=== PATIENT | female | born 1985 | race Caucasian/White ===

== ENCOUNTER → 2017-08-08 09:16 | Outpatient (CLI) | payer OTHER, SELFPAY ==
--- NOTE | 2017-08-08 10:27 | RAD_ITS ---
STUDY: X-RAY - CERVICAL SPINE REASON FOR EXAM: Female, 32 years old. Headaches and neck popping TECHNIQUE: 5 view(s) of the cervical spine were obtained. COMPARISON: None FINDINGS: Normal anterior atlantoaxial articulation. Normal odontoid process. Normal cervical lordosis. Normal vertebral bodies and endplates. Normal disc space heights. Normal visualized intervertebral neuroforamina. The soft tissue structures are unremarkable. RAD/Cerv Spine 4 or 5 Views IMPRESSION: Normal x-ray examination of the visualized cervical spine. Electronically Signed: Jin Moss MD at 8:20 EDT Tel , Service support ,
[2017-08-08 10:57] LABS: Free T3 2.5 pg/mL (2.18-3.98); T4 Free Direct 1.14 ng/dL (0.76-1.46)
== END ==
PROVIDERS: Family Provider Family Medicine; PCP Family Medicine; Visit Provider Family Medicine
DX: E03.9 Hypothyroidism, unspecified (principal); G43.909 Migraine, unspecified, not intractable, without status migrainosus
CPT/HCPCS: 36415; 72050; 84439; 84443; 84481

== ENCOUNTER → 2018-02-06 10:09 | Outpatient (CLI) | payer OTHER, SELFPAY ==
[2018-02-06 10:49] LABS: Thyroid Stim Hormone (TSH) 7.43 uIU/mL (0.358-3.74)
== END ==
PROVIDERS: Family Provider Family Medicine; PCP Family Medicine; Visit Provider Family Medicine
DX: E03.9 Hypothyroidism, unspecified (principal)
CPT/HCPCS: 84439; 84443

== ENCOUNTER → 2019-02-05 08:49 | Outpatient (CLI) | payer OTHER, BC, SELFPAY ==
[2018-08-25 09:06] VITALS: BMI 21.3
[2019-02-05 10:38] LABS: T4 Free Direct 1.13 ng/dL (0.76-1.46); Thyroid Stim Hormone (TSH) 0.55 uIU/mL (0.358-3.74)
== END ==
PROVIDERS: Family Provider Family Medicine; PCP Family Medicine; Referring Provider Family Medicine; Visit Provider Family Medicine
DX: E03.9 Hypothyroidism, unspecified (principal)
CPT/HCPCS: 36415; 84439; 84443

== ENCOUNTER → 2019-06-21 13:42 | Outpatient (CLI) | payer BC, SELFPAY ==
[2019-05-18 09:41] VITALS: BMI 21.3
--- NOTE | 2019-06-21 14:10 | RAD_ITS ---
STUDY: X-RAY - PARANASAL SINUSES REASON FOR EXAM: Female, 34 years old. allergic rhinitis TECHNIQUE: 3 view(s) of the paranasal sinuses were obtained. COMPARISON: None. FINDINGS: Normal visualized frontal, maxillary, ethmoidal and sphenoid sinuses. Normal visualized facial bones. The soft tissue structures are unremarkable. RAD/Sinuses min 3 Views IMPRESSION: Normal x-rays of the paranasal sinuses. Electronically Signed: Joby Freitas MD ([place]) at 14:34 EST , Service support ,
== END ==
PROVIDERS: PCP Family Medicine; Visit Provider Family Medicine
DX: J30.9 Allergic rhinitis, unspecified (principal)
CPT/HCPCS: 70220

== ENCOUNTER → 2019-07-23 15:22 | Outpatient (CLI) | payer BC, SELFPAY ==
[2019-07-23 13:52] VITALS: BMI 22.2
[2019-07-28 12:26] LABS: HPV APTIMA, High Risk Negative (Negative)
== END ==
PROVIDERS: PCP Family Medicine; Referring Provider Nurse Practitioner Women's Health; Visit Provider Nurse Practitioner Women's Health
DX: Z12.4 Encounter for screening for malignant neoplasm of cervix (principal); N89.8 Other specified noninflammatory disorders of vagina
CPT/HCPCS: 87070; 87205; 87624; 88175; G0145

== ENCOUNTER → 2019-08-06 10:33 | Outpatient (CLI) | payer BC, SELFPAY ==
[2019-07-23 13:52] VITALS: BMI 22.2
[2019-08-06 12:54] LABS: T4 Free Direct 1.27 ng/dL (0.76-1.46); Thyroid Stim Hormone (TSH) 0.62 uIU/mL (0.358-3.74)
== END ==
PROVIDERS: PCP Family Medicine; Referring Provider Family Medicine; Visit Provider Family Medicine
DX: E03.9 Hypothyroidism, unspecified (principal)
CPT/HCPCS: 36415; 84439; 84443

== ENCOUNTER → 2020-02-05 08:51 | Outpatient (CLI) | payer BC, SELFPAY ==
[2019-07-23 13:52] VITALS: BMI 22.2
[2020-02-05 09:30] LABS: T4 Free Direct 0.94 ng/dL (0.76-1.46)
== END ==
PROVIDERS: PCP Family Medicine; Referring Provider Family Medicine; Visit Provider Family Medicine
DX: E03.9 Hypothyroidism, unspecified (principal)
CPT/HCPCS: 36415; 84439; 84443

== ENCOUNTER → 2020-06-15 08:42 | Outpatient (CLI) | payer BC, SELFPAY ==
[2019-07-23 13:52] VITALS: BMI 22.2
[2020-06-15 10:25] LABS: Thyroid Stim Hormone (TSH) 1.83 uIU/mL (0.358-3.74)
== END ==
PROVIDERS: PCP Family Medicine; Referring Provider Family Medicine; Visit Provider Family Medicine
DX: E03.9 Hypothyroidism, unspecified (principal)
CPT/HCPCS: 36415; 84443

== ENCOUNTER → 2020-06-16 08:52 | Outpatient (CLI) | payer BC, SELFPAY ==
[2019-07-23 13:52] VITALS: BMI 22.2
--- NOTE | 2020-06-16 09:03 | RAD_ITS ---
STUDY: X-RAY - ABDOMEN/PELVIS REASON FOR EXAM: Female, 35 years old. Abd pain, hx of constipation TECHNIQUE: Two AP supine views of the abdomen and pelvis. COMPARISON: None. FINDINGS: Normal visualized lung bases. There is an abundance of fecal material throughout the colon. There is no demonstrated free abdominal air. The visualized liver, spleen and kidneys are grossly normal in size and morphology. There is evidence of bilateral tubal ligation clips. Normal visualized osseous structures. RAD/Abd Inc Decub and/or Erect IMPRESSION: Large amount of fecal material is seen in the colon. Electronically Signed: Romain Starkey MD at 15:47 EST , Service support ,
[2020-06-16 10:09] LABS: Absolute Lymphocyte Count 1.57 X10^3/uL (0.83-4.51); Absolute Neutrophil Count 3.2 X10^3/uL (2.0-7.7); Basophil# 0.03 X10^3/uL; Basophil% 0.6 % (0-1); Eosinophil# 0.12 X10^3/uL; Eosinophils% 2.2 % (0-5); Hematocrit 42.2 % (37-47); Hemoglobin 13.5 g/dL (12.0-15.0); Lymphocyte # 1.57 X10^3/ul (4.0); Lymphocyte % 29.3 % (19-41); Mean Corpuscular Hgb 28.7 pg (27.0-32.0); Mean Corpuscular Volume 89.6 fL (81-99); Mean Platelet Vol. 10.1 fl (6.2-12.0); Monocyte# 0.43 X10^3/uL; NRBC Flagged by Analyzer 0 % (0-5); Neutrophil # 3.19 X10^3/uL (2.7-7.7); Neutrophil % 59.7 % (47-70); Platelet Count 298 K/mm3 (150-450); RBC Distribution Width CV 12.3 % (11.6-14.6); RBC Distribution Width SD 40.5 fl (35.1-43.9); Red Blood Count 4.71 M/mm3 (4.2-5.4); White Blood Count 5.4 K/mm3 (4.4-11.0)
[2020-06-16 10:30] LABS: AST(SGOT) 15 U/L (15-37); Alanine Aminotransfer ALT/SGPT 23 U/L (13-56); Albumin, Serum 3.7 g/dL (3.2-5.0); Alkaline Phosphatase 118 U/L (45-117); Anion Gap 6 (5-15); BUN 16 mg/dL (7-18); BUN/Creat Ratio 21.3 RATIO (10-20); Calcium,Total 8.7 mg/dL (8.5-10.1); Chloride 108 mmol/L (98-107); Creatinine, Serum 0.75 mg/dL (0.55-1.02); EST Glomerular Filtration Rate 93 mL/min (>60); Est Glom Filt Rate - Afr Amer 112 mL/min (>60); Globulin 3.7 g/dL (2.2-4.2); Glucose 78 mg/dL (74-106); Iron 37 ug/dL (50-170); Potassium 4.2 mmol/L (3.5-5.1); Protein, Total 7.4 g/dL (6.4-8.2); Sodium Level 139 mmol/L (136-145)
[2020-06-16 13:03] LABS: Vitamin B12 544 pg/mL (211-911); Vitamin D,25 Hydroxy 25.9 ng/mL
== END ==
PROVIDERS: PCP Family Medicine; Referring Provider Family Medicine; Visit Provider Family Medicine
DX: R10.9 Unspecified abdominal pain (principal); R53.83 Other fatigue
CPT/HCPCS: 36415; 74019; 80053; 82306; 82533; 82607; 83540; 85025

== ENCOUNTER → 2022-05-10 | Outpatient (CLI) | payer BC, SELFPAY ==
[2022-05-10 10:18] LABS: Vitamin D,25 Hydroxy 40.9 ng/mL
[2022-05-10 10:20] LABS: T4 Free Direct 1.14 ng/dL (0.76-1.46); Thyroid Stim Hormone (TSH) 0.97 uIU/mL (0.358-3.74)
== END | disposition home or self-care (01) ==
LOC: MFPLAB 08:42
PROVIDERS: PCP Family Medicine; Referring Provider Family Medicine; Visit Provider Family Medicine
DX: E03.9 Hypothyroidism, unspecified (principal); E55.9 Vitamin D deficiency, unspecified
CPT/HCPCS: 36415; 82306; 84439; 84443

== ENCOUNTER → 2023-04-03 | Outpatient (CLI) | payer BC, SELFPAY ==
--- NOTE | 2023-04-03 10:59 | MRI_ITS ---
STUDY: MRI BRAIN WITH AND WITHOUT CONTRAST REASON FOR EXAM: Female, 37 years old. Migraine headaches TECHNIQUE: Standardized multiplanar fat and water weighted pulse sequences were obtained. IV 10ML CLARISCAN was administered for the contrast portion of the examination. COMPARISON: None. FINDINGS: Normal size of the ventricles and extra-axial spaces for the patient''s age. Normal white matter tracts of the supratentorial brain. Normal bilateral basal ganglia. Normal thalami. There is no extra-axial fluid accumulation. Normal flow voids within the major intracranial circulation suggesting patency by spin echo criteria. Normal venous enhancement. There is no enhancing intra-axial or extra-axial abnormality. Normal sella turcica, pituitary gland, infundibular stalk, optic chiasm and hypothalamus. Normal tectal plate and pineal gland. Normal midbrain, keya and medulla. Normal cerebellum. Normal basal cisterns. Normal bilateral temporal bones. Normal bilateral internal auditory canals. No demonstrated orbital abnormality, within the constraints of a routine brain study. Normal visualized paranasal sinuses. Normal calvarium and skull base. Normal visualized soft tissue structures. Normal visualized upper cervical spine. MRI/Brain W/WO Contrast IMPRESSION: Normal unenhanced and enhanced MRI of the brain. Electronically Signed: Sivakumar Junior MD at 16:34 EST ,
== END | disposition home or self-care (01) ==
LOC: MRI 10:55
PROVIDERS: PCP Family Medicine; Visit Provider Psychiatry & Neurology Neurology
DX: G43.009 Migraine without aura, not intractable, without status migrainosus (principal)
CPT/HCPCS: 70553; A9575

== ENCOUNTER 2023-10-06 22:07 | Emergency (ER) | payer BC, SELFPAY ==
[2023-10-06 22:09] VITALS: BP 149/102; PULSE 95; RESP 14; TEMP 36.6; O2SAT 97; BMI 24.4
--- NOTE | 2023-10-06 22:15 | EX.ED.DYSGE1 ---
HPI History of Present Illness Chief Complaint: Allergic Reaction Informant: patient Onset/Context/Timing Onset: Hours (1) Context: Sudden Onset Timing: Waxes and wanes Quality: Swelling Location: Throat Worsened by: Nothing Relieved by: Nothing Narrative Narrative: Patient presents with sensation of throat swelling and tongue numbness that began tonight. Patient states she was eating Cajun seasoned food when her symptoms began. Patient states it felt like her throat was closing. Patient states that this was waxing and waning over the past hour since it began. Patient states she had an episode that lasted a couple seconds where she felt like she could not breathe in or out. Patient denies any chest pain. Patient took 25 mg of Benadryl at home prior to arrival. [facility] Medical History Environmental allergies Headaches, cluster High cholesterol hypothyridism Home Medications levothyroxine 100 mcg tablet 100 mcg PO DAILY@0600 #30 tabs 09/04/14 [Rx Last Taken Unknown] naratriptan 2.5 mg tablet See Rx Instructions PO .COMPLEX #9 tabs 07/10/23 [Rx Last Taken Unknown] doxycycline hyclate 20 mg tablet 20 mg PO BID 10/06/23 [History Last Taken Unknown] prednisone 20 mg tablet 40 mg (2 x 20 mg) PO DAILY #10 TABLETS 10/06/23 [Rx Last Taken Unknown] Allergy/AdvReac Type Severity Reaction Status Date / Time erythromycin base Allergy Unknown Unknown Verified 07/10/23 15:28 [Erythromycin Base] venom-honey bee AdvReac Intermediate Swelling Verified 07/10/23 15:28 [bee venom (honey bee)] doxycycline AdvReac Unknown Unknown Verified 07/10/23 15:28 Family History Other Breast cancer High cholesterol Hypertension Surgical History History of delivery History of hernia repair History of tonsillectomy tubal sterilization Social History Smoking Status: Never smoker alcohol intake: current alcohol intake frequency: holidays/special occasions only substance use type: does not use what type of physical activity do you participate in: walking and aerobics frequency: 1-2 times per week seatbelt use: always do you feel safe at home: Yes ROS ROS ED Constitutional Constitutional ED: Denies chills or fever(s) Eyes Eyes: Denies blurry vision or change in vision ENT ENT ED: Reports sore throat Cardiovascular Cardiovascular: Denies chest pain or palpitations Respiratory/Chest Respiratory/Chest: Denies cough or dyspnea Gastrointestinal Gastrointestinal: Denies nausea or vomiting Genitourinary Genitourinary ED: Denies dysuria or hematuria Musculoskeletal Musculoskeletal: Denies back pain or neck pain Integumentary Denies abscess or rash Neurologic Neurologic: Denies headache(s) or weakness Allergic/Immunologic Allergic/Immunologic ED: Reports tongue swelling EXAM Physical Exam Const Vital Signs: 10/06/23 22:09 10/06/23 23:08 Temperature 98 F 98.1 F Temperature Source Temporal Oral Pulse Rate 95 77 Respiratory Rate 14 18 Blood Pressure 149/102 H 118/78 Blood Pressure Mean 117 91 Pulse Ox 97 97 Oxygen Delivery Method Room Air Positive well nourished and well developed General Appearance ED: well developed and NAD HEENT Reports moist mucous membranes Neck supple and no JVD Resp normal respiratory effort and clear to auscultation bilaterally Cardio regular rate and regular rhythm GI non-tender and non-distended Palpation: soft Extremity normal to inspection Neuro oriented x3, CN's II-XII intact bilaterally and no sensory deficits noted Sensorium / Orientation: alert Motor Exam: strength 5/5 throughout Psych mental status grossly normal MDM MDM MDM Narrative Medical decision making narrative: Patient was advised that this is most likely an allergic reaction. Patient was given a dose of Solu-Medrol. Since the patient took Benadryl prior to arrival, this was withheld. Since her airway is patent and there is no urticaria noted, I do not feel epinephrine is necessary at this time. Treatment and Re-Evaluation :: Patient was given a dose of Solu-Medrol here. Patient was observed in the emergency department. Patient is feeling better on reevaluation. Patient was given a prescription for a short course of prednisone. Patient was instructed to follow-up with her primary care physician in 5 to 7 days. Patient understood and was agreeable with the plan. All questions were answered. Discharge Plan Triage Chief Complaint: Allergic Reaction ED Provider: Rusty Ca Dx/Rx/DC Orders Clinical Impression: Allergic reaction Instructions: ED General Allergic Reactions Prescriptions: New prednisone 20 mg tablet 40 mg PO DAILY Qty: 10 0RF No Action naratriptan 2.5 mg tablet See Rx Instructions PO .COMPLEX Qty: 9 6RF Rx Instructions: take 1 tab at onset of headache; if no relief may repeat 1 tab after at least 4 hrs; max = 2 tabs/24 hrs PO levothyroxine 100 MCG tablet 100 mcg PO DAILY@0600 Qty: 30 1RF doxycycline hyclate 20 mg tablet 20 mg PO BID Primary Care Provider: Fitz Richard Referrals: Fitz Richard MD [Primary Care Provider] - 5-7 Days Disposition Disposition: Home, Self Care
[2023-10-06] MEDS: MethylPREDNISolone 125 MG/2 ML Vial 60 MG IV (22:22)
[2023-10-06 23:08] VITALS: BP 118/78; PULSE 77; RESP 18; TEMP 36.7; O2SAT 97
[2023-10-07] VITALS: BP 116/79; PULSE 81; RESP 18; TEMP 36.3; O2SAT 98
[2023-10-07 00:22] VITALS: BP 125/87; PULSE 77; RESP 16; TEMP 36.7; O2SAT 98
== END 2023-10-07 00:23 | disposition home or self-care (01) ==
PROVIDERS: Emergency Provider Emergency Medicine; PCP Family Medicine; Visit Provider Emergency Medicine
DX: R20.0 Anesthesia of skin (principal); E78.00 Pure hypercholesterolemia, unspecified; E03.9 Hypothyroidism, unspecified; Z79.899 Other long term (current) drug therapy; Z30.2 Encounter for sterilization; T78.1XXA Other adverse food reactions, not elsewhere classified, initial encounter; R22.1 Localized swelling, mass and lump, neck
CPT/HCPCS: 96374; 99285; A4216

== ENCOUNTER → 2024-12-11 | Outpatient (CLI) | payer BC, SELFPAY ==
[2024-12-11 10:45] LABS: Color, Urine Yellow (Yellow); Glucose, Dipstick Normal (Normal); Ketone-Dipstick Negative (Negative); Leukocyte Esterase-Dipstick Negative /ul (Negative); Nitrite-Dipstick Negative (Negative); Occult Blood-Urine Negative /ul (Negative); Protein-Dipstick Negative (Negative); Specific Gravity, Urine 1.025 (1.002-1.030); Urine Bilirubin Dipstick Negative (Negative)
[2024-12-11 12:12] LABS: Vitamin D,25 Hydroxy 34.1 ng/mL (30-100)
== END | disposition home or self-care (01) ==
LOC: MFPLAB 08:28
PROVIDERS: PCP Family Medicine; Referring Provider Family Medicine; Visit Provider Family Medicine
DX: Z00.00 Encounter for general adult medical examination without abnormal findings (principal); Z13.220 Encounter for screening for lipoid disorders; E55.9 Vitamin D deficiency, unspecified; E03.9 Hypothyroidism, unspecified; Z13.1 Encounter for screening for diabetes mellitus
CPT/HCPCS: 36415; 81002; 82306; 84439; 84443